=== PATIENT | female | born 1940 | race Caucasian/White ===

== ENCOUNTER 2017-11-25 20:58 | Inpatient (IN) | payer MEDICARE ==
[~2017-11-25 20:58] MED LIST: ACET325 PO
[2017-11-25 21:23] VITALS: BP 102/55; PULSE 77; RESP 12; TEMP 99
[2017-11-25 21:51] VITALS: BP 120/58; PULSE 74; RESP 18; O2SAT 97
--- NOTE | 2017-11-25 21:59 | PD ---
HPI Chief Complaint: Abdominal Pain Time Seen by Provider: 21:50 Travel History International Travel<30 days: No Contact w/Intl Traveler<30days: No Traveled to known affect area: No History of Present Illness HPI The patient is a 77 year old female who presents to the [facility] emergency department with a history of abdominal that began on Saturday. It is constant and worsening. It with worse with standing or moving. It is an aching sensation that is 8-9/10 in severity currently. She has had a diminished appetite. She last moved her bowels on Saturday. She denies having any blood in her stool. The patient denies any history of recent constipation. On review of systems otherwise, the patient denies having any recent fevers, cough, congestion, neck pain, chest pain, shortness of breath, nausea, vomiting, diarrhea, dysuria, urinary frequency, urinary urgency, or neurologic symptoms. FOR[facility]LY [facility] Past Medical History Narrative Medical The patient's past medical history is significant for bladder cancer s/p surgical scraping, bladder stones, hyperlipidemia. PCP in [place]. Cancer: Yes (bladder 01/2017) Diabetes: No Glaucoma: No Hepatitis: No Hiatal Hernia: No Hypertension: No Thyroid Disease: No Influenza Vaccination: No Past Surgical History Narrative Surgical bladder CA resection s/p chemotherapy with a negative cystoscopy for recurrence on October 01, 2017, history of hysterectomy. Eye Surgery: Yes (CATARACT SX BOTH EYES) Gynecologic Surgery: Yes (HYSTERECTOMY ) Hysterectomy: Yes Other Surgery: Yes Social History Alcohol Use: Yes (OCC WINE) Tobacco Use: No Substance Use: No Allergies-Medications (Allergen,Severity, Reaction): Coded Allergies: Sulfa (Sulfonamide Antibiotics) (Unverified Allergy, Severe, RASH, 05/14/17 ) codeine (Unverified Allergy, Intermediate, NAUSEA, 05/14/17) morphine (Unverified Allergy, Intermediate, VOMITITNG, 05/14/17) Reported Meds & Prescriptions Reported Meds & Active Scripts Active Reported Tylenol (Acetaminophen) 325 Mg Tab 650 Mg PO Q6-8HPRN Narrative Medication pravastatin, sleep aid, low dose aspirin daily. Review of Systems Except as stated in HPI: all other systems reviewed are Neg General / Constitutional: No: Fever Eyes: No: Visual changes HENT: No: Headaches Cardiovascular: No: Chest Pain or Discomfort Respiratory: No: Shortness of Breath Gastrointestinal: Positive: Abdominal Pain, Loss of Appetite, No: Nausea, Vomiting, Diarrhea Genitourinary: No: Dysuria Musculoskeletal: No: Pain Skin: No Rash Neurologic: No: Weakness Psychiatric: No: Depression Endocrine: No: Polydipsia Hematologic/Lymphatic: No: Easy Bruising Physical Exam Narrative General: The patient is a well-developed well nourished female in no acute distress. Head and Neck exam: Head is normocephalic atraumatic. Eyes: EOMI, pupils are equal round and reactive to light. Nose: Midline septum with pink mucous membranes Mouth: Dentition unremarkable. Moist mucus membranes. Posterior oropharynx is not erythematous. No tonsillar hypertrophy. Uvula midline. Airway patent. Neck: No palpable lymphadenopathy. No nuchal rigidity. No thyromegaly. Cardiovascular: Regular rate and rhythm without murmurs, gallops, or rubs. Lungs: Clear to auscultation bilaterally. No wheezes, rhonchi, or rales. Abdomen: Soft, with tenderness on palpation of bilateral lower quadrants of the abdomen and the right upper quadrant of the abdomen, negative Thompson sign. The patient has tenderness on palpation over McBurney's point. The patient also has suprapubic tenderness on palpation. No guarding, rebound, or rigidity. Normal bowel sounds are audible. Extremities: No clubbing, cyanosis, or edema. 2+ pulses in all 4 extremities. No calf tenderness on palpation. Back: No spinous process tenderness to palpation. No costovertebral angle tenderness to palpation. Neurologic Exam: Grossly nonfocal. Skin Exam: No rash noted. Intact skin that is warm and dry. Data Data Last Documented VS Vital Signs Date Time Temp Pulse Resp B/P (MAP) Pulse Ox O2 Delivery O2 Flow Rate FiO2 11/25/17 22:00 17 99 Room Air 11/25/17 21:51 74 11/25/17 21:23 99.0 Orders Orders Complete Blood Count With Diff (11/25/17 21:25) Prothrombin Time / Inr (Pt) (11/25/17 21:25) Act Partial Throm Time (Ptt) (11/25/17 21:25) Urinalysis - C+S If Indicated (11/25/17 21:25) Electrocardiogram (11/25/17 21:25) C-Reactive Protein (Crp) (11/25/17 21:54) Hepatic Functional Panel (11/25/17 21:54) Lipase (11/25/17 21:54) Iv Access Insert/Monitor (11/25/17 21:54) Ecg Monitoring (11/25/17 21:54) Oximetry (11/25/17 21:54) Ketorolac Inj (Toradol Inj) (11/25/17 22:30) Ondansetron Inj (Zofran Inj) (11/25/17 22:30) Sodium Chlorid 0.9% 500 Ml Inj (Ns 500 M (11/25/17 22:30) Ct Abd/Pel W Iv Contrast(Rout) (11/25/17 22:27) Basic Metabolic Panel (Bmp) (11/25/17 22:00) Iohexol 350 Inj (Omnipaque 350 Inj) (11/26/17 00:50) Sodium Chlor 0.9% 1000 Ml Inj (Ns 1000 M (11/26/17 01:45) Piperacil-Tazo 3.375 Gm Premix (Zosyn 3. (11/26/17 02:00) Admit Order (Ed Use Only) (11/26/17 02:11) Labs Laboratory Tests Test 11/25/17 22:00 White Blood Count 7.3 TH/MM3 Red Blood Count 4.62 MIL/MM3 Hemoglobin 14.0 GM/DL Hematocrit 41.0 % Mean Corpuscular Volume 88.8 FL Mean Corpuscular Hemoglobin 30.4 PG Mean Corpuscular Hemoglobin Concent 34.2 % Red Cell Distribution Width 14.6 % Platelet Count 185 TH/MM3 Mean Platelet Volume 8.8 FL Neutrophils (%) (Auto) 86.0 % Lymphocytes (%) (Auto) 9.5 % Monocytes (%) (Auto) 4.1 % Eosinophils (%) (Auto) 0.0 % Basophils (%) (Auto) 0.4 % Neutrophils # (Auto) 6.3 TH/MM3 Lymphocytes # (Auto) 0.7 TH/MM3 Monocytes # (Auto) 0.3 TH/MM3 Eosinophils # (Auto) 0.0 TH/MM3 Basophils # (Auto) 0.0 TH/MM3 CBC Comment DIFF FINAL Differential Comment Prothrombin Time 10.9 SEC Prothromb Time International Ratio 1.1 RATIO Activated Partial Thromboplast Time 26.6 SEC Blood Urea Nitrogen 20 MG/DL Creatinine 1.25 MG/DL Random Glucose 151 MG/DL Total Protein 7.1 GM/DL Albumin 3.4 GM/DL Calcium Level 8.8 MG/DL Alkaline Phosphatase 110 U/L Aspartate Amino Transf (AST/SGOT) 25 U/L Alanine Aminotransferase (ALT/SGPT) 20 U/L Total Bilirubin 1.2 MG/DL Direct Bilirubin 0.3 MG/DL Sodium Level 135 MEQ/L Potassium Level 4.0 MEQ/L Chloride Level 102 MEQ/L Carbon Dioxide Level 24.3 MEQ/L Anion Gap 9 MEQ/L Estimat Glomerular Filtration Rate 41 ML/MIN Indirect Bilirubin 0.9 MG/DL C-Reactive Protein 26.00 MG/DL Lipase 32 U/L MDM Medical Decision Making Medical Screen Exam Complete: Yes Emergency Medical Condition: Yes Medical Record Reviewed: Yes Interpretation(s) Last Impressions Abdomen/Pelvis CT 11/25/172226 Signed Impressions: Service Date/Time: Sunday, November 26, 2017 00:53 - CONCLUSION: 1. Findings consistent with acute appendicitis and 9 mm appendicolith. Although there is moderate inflammation in the pericecal and periappendiceal region with small amount of free fluid in the pelvis, there is no definitive CT evidence for perforation or abscess at this time. Peng Capps MD Differential Diagnosis Acute pancreatitis, versus biliary colic, versus acute cholecystitis, versus appendicitis, versus colitis, versus diverticulitis Narrative Course During the course of the patient's emergency department visit, the patient's history, examination, and differential diagnosis were reviewed with the patient. The patient was placed on a electronic device monitor with oximetry and frequent blood pressure monitoring. The patient had IV access obtained and blood work sent for analysis. The patient had an EKG done on arrival that shows a sinus rhythm heart rate is 73, no acute ST segment elevation, QRS duration 92 ms, QTC 401 ms. The patient was initially provided Toradol 15 mg IV for pain, Zofran 4 mg IV for nausea, normal saline at 500 mL bolus 1. The patient's laboratory studies were reviewed and remarkable for a white count of 7.3, hemoglobin 14, platelets 185 with 86 neutrophils. CMP is remarkable for a sodium of 135, BUN 20, creatinine 1.25, glucose 151, total bilirubin 1.2, C-reactive protein is 26, lipase 32. PT 10.9, PTT 26.6 Radiology studies were reviewed and remarkable for a CT scan of the abdomen and pelvis shows findings consistent with acute appendicitis with a [address] Velasquze, the general surgeon on-call, was called at 2:08AM. He did agree to admit the patient for continued evaluation, operative treatment. He was agreeable with the plan for the patient to receive Zosyn 3.375 g IV. The patient's results were discussed with the patient, including the plan of care. I explained that further testing and/ or monitoring is indicated based on the patient's history, examination, and/ or laboratory findings. Therefore, I recommended admission for additional evaluation. The patient expressed understanding and was agreeable with this plan. The patient was admitted to the hospital in stable condition and sent to a bed under the care of the general surgeon. Physician Communication Physician Communication The patient's case including history, pertinent physical examination findings, and laboratory studies were discussed with Dr. Dick. It was agreed that the patient would be admitted to the surgical service. Diagnosis Primary Impression: Appendicitis Qualified Codes: K35.2 - Acute appendicitis with generalized peritonitis Admitting Information Admitting Physician Requests: Observation Desirae Aly MD Nov 25, 2017 21:59
[2017-11-25 22:00] VITALS: RESP 17; O2SAT 99
[2017-11-25] MEDS ORDERED: ONDANSETRON HCL 4 MG/2 ML VIAL IV PUSH ONE (22:30)
[2017-11-25] MEDS ORDERED: SODIUM CHLORID 0.9% 500 ML INJ 500 ML IV ONE (22:30)
[2017-11-25] MEDS ORDERED: KETOROLAC TROMETHAMINE 30 MG/ML (IVP) VIAL IV PUSH ONE (22:30)
[2017-11-25 22:48] LABS: ALBUMIN 3.4 GM/DL (3.4-5.0); DIRECT BILIRUBIN ADULT 0.3 MG/DL (0.0-0.2)
[2017-11-25 22:54] LABS: INDIRECT BILIRUBIN 0.9 MG/DL (0.0-0.8); TOTAL BILIRUBIN ADULT 1.2 MG/DL (0.2-1.0); TOTAL PROTEIN 7.1 GM/DL (6.4-8.2)
[2017-11-26 00:01] LABS: AUTOMATED NEUTROPHIL # 6.3 TH/MM3 (1.8-7.7); BASOPHIL % 0.4 % (0.0-2.0); LYMPH % 9.5 % (9.0-44.0); LYMPHOCYTE # 0.7 TH/MM3 (1.0-4.8); MEAN CELL VOLUME 88.8 FL (80.0-100.0); MEAN CORPUSCULAR HEMOGLOBIN 30.4 PG (27.0-34.0); MEAN CORPUSCULAR HGB CONC 34.2 % (32.0-36.0); MEAN PLATELET VOLUME 8.8 FL (7.0-11.0); MONO % 4.1 % (0.0-8.0); MONOCYTE # 0.3 TH/MM3 (0-0.9); PLATELET COUNT 185 TH/MM3 (150-450); RED BLOOD COUNT 4.62 MIL/MM3 (4.00-5.30); RED CELL DISTRIBUTION WIDTH 14.6 % (11.6-17.2); WHITE BLOOD COUNT 7.3 TH/MM3 (4.0-11.0)
[2017-11-26 00:12] LABS: INTERNATIONAL NORMALIZED RATIO 1.1 RATIO; PROTHROMBIN TIME - PATIENT 10.9 SEC (9.8-11.6)
[2017-11-26 00:14] LABS: CALCIUM 8.8 MG/DL (8.5-10.1); CREATININE 1.25 MG/DL (0.50-1.00)
[2017-11-26 00:27] LABS: BICARBONATE 24.3 MEQ/L (21.0-32.0)
[2017-11-26] MEDS ORDERED: IOHEXOL 350 MG/ML 10 ML VIAL (for RAD DIAG) IVCONTRAST ONE (00:50)
--- NOTE | 2017-11-26 01:38 | RADRPT ---
EXAM DATE/TIME: 11/26/2017 00:53 [place] COMPARISON: No previous studies available for comparison. INDICATIONS : Low abdomen pain. IV CONTRAST: 75 cc Omnipaque 350 (iohexol) IV ORAL CONTRAST: No oral contrast ingested. RADIATION DOSE: 9.55 CTDIvol (mGy) MEDICAL HISTORY : Carcinoma, bladder. SURGICAL HISTORY : Hysterectomy. ENCOUNTER: Initial ACUITY: 1 day PAIN SCALE: 5/10 LOCATION: Bilateral lower quadrant TECHNIQUE: Volumetric scanning of the abdomen and pelvis was performed. Using automated exposure control and ad justment of the mA and/or kV according to patient size, radiation dose was kept as low as reasonably achievable to obtain optimal diagnostic quality images. DICOM format image data is available electro nically for review and comparison. FINDINGS: LOWER LUNGS: Minimal bibasilar groundglass opacities. LIVER: Homogeneous density without lesion. There is no dilation of the biliary tree. No calcified gallston es. SPLEEN: Normal size without lesion. PANCREAS: Within normal limits. KIDNEYS: 7 mm just to a calculus in the mid left kidney. Multiple small subcentimeter hypodense bilateral cyst ic lesions which are too small to fully characterize. The no hydronephrosis. ADRENAL GLANDS: Within normal limits. VASCULAR: There is no aortic aneurysm. BOWEL/MESENTERY: There is a 9 mm appendicolith in the appendix origin. Appendix is dilated and appears inflamed. There is moderate periappendiceal and pericecal inflammatory stranding with small amount of fluid in the p ben. No definite free air or drainable fluid collection at this time. Several loops of nondistended fluid-filled small bowel in the lower abdomen quite reflect reactive mild ileus. ABDOMINAL WALL: Within normal limits. RETROPERITONEUM: There is no lymphadenopathy. BLADDER: Bladder is unremarkable by CT. REPRODUCTIVE: Uterus is surgically absent. INGUINAL: There is no lymphadenopathy or hernia. MUSCULOSKELETAL: Within normal limits for patient age. CONCLUSION: 1. Findings consistent with acute appendicitis and 9 mm appendicolith. Although there is moderate inf lammation in the pericecal and periappendiceal region with small amount of free fluid in the pelvis, there is no definitive CT evidence for perforation or abscess at this time. Peng Capps MD on November 26, 2017 at 1:30 Board Certified Radiologist. This report was verified electronically.
[2017-11-26] MEDS ORDERED: SODIUM CHLOR 0.9% 1000 ML INJ 1,000 ML IV ONE (01:45)
[2017-11-26] MEDS ORDERED: PIPERACIL-TAZO 3.375 GM PREMIX 50 ML IV ONE (02:00)
[2017-11-26] MEDS ORDERED: BUPIVACAINE/EPINEPHRINE 0.25% 50 ML VIAL ONE (06:08)
--- NOTE | 2017-11-26 06:46 | HHI.PR ---
Immediate Post Op Note Procedure Date: Nov 26, 2017 Pre Op Diagnosis: acute appendicitis Post Op Diagnosis: necrotic perforated appendicitis, with multiple interloop abscess Surgeon: Esvin Velasquez MD Poured Pipe Maker(s): see or sheet Procedure: lap appy Findings: inflamed appendix, necrotic perforated, abscess Complications: none Specimen(s) removed: appendix Estimated blood loss: 5cc Anesthesia: General Drains: GINNA Patient to: PACU Patient Condition: Good Esvin Velasquez MD Nov 26, 2017 06:46
[2017-11-26] MEDS ORDERED: MIDAZOLAM HCL 2 MG/2 ML VIAL ONE (07:04)
[2017-11-26] MEDS ORDERED: SUGAMMADEX SODIUM 200 MG/2 ML VIAL IV PUSH ONE (07:21)
[2017-11-26] MEDS ORDERED: DO NOT ADM ANY ANTICOAGULANT DRUGS PRN (08:00)
[2017-11-26] MEDS: PIPERACIL-TAZO 3.375 GM PREMIX 50 ML IV SCH ×2 (08:45→18:14)
--- NOTE | 2017-11-26 09:37 | MH ---
cc: Esvin Velasquez MD DATE OF ADMISSION: 11/26/2017 CHIEF COMPLAINT: Abdominal pain, acute appendicitis. HISTORY OF PRESENT ILLNESS: Patient is a 77-year-old female who presents with acute onset of abdominal pain. She states the pain started Saturday and continued to get worse. She notes the pain is somewhat diffuse, 7/10. Currently, it is 8/10 or 9/10. She said it is sharp and radiates kind of bilateral lower quadrants, more so in the right lower quadrant. She has decreased associated p.o. intake. She denies any overt vomiting. Does have complaint of some nausea. She came in the emergency department for evaluation including CT scanning concerning with appendicolith and acute appendicitis. Surgery consulted. On my exam, patient is complaining of some bilateral lower quadrant pain. She said it is somewhat mild. Her white count is normal as well. PAST MEDICAL HISTORY: Bladder cancer, hyperlipidemia, bladder stones. PAST SURGICAL HISTORY: Bladder scraping, hysterectomy. SOCIAL HISTORY: Occasional ETOH. Denies smoking or IVDA. ALLERGIES: SULFA, CODEINE, MORPHINE. MEDICATIONS: See EMR. FAMILY HISTORY: Denies coronary artery disease or hypertension. REVIEW OF SYSTEMS: GENERAL: Denies fever, chills. HEENT: Denies eye pain or ear pain. NECK: Denies swelling or pain. LUNGS: Denies cough or wheeze. HEART: Denies palpitations or chest pain. ABDOMEN: Complains of nausea. Denies vomiting. Complains of abdominal pain. GENITOURINARY: Denies dysuria or hematuria. ENDOCRINE: Denies polyuria or polydipsia. NEUROLOGIC: Denies numbness or PSYCHIATRIC: Denies depression or change in mood. HEMATOLOGIC: Denies bruising. PHYSICAL EXAMINATION: GENERAL: Patient in no acute distress. VITAL SIGNS: Temperature is 99, pulse 74, respirations 18, blood pressure 120/58, saturation 97%. HEENT: Pupils equal, round, reactive. NECK: Supple, trachea midline. LUNGS: Clear to auscultation bilaterally. HEART: S1, S2, regular. ABDOMEN: Soft, positive tenderness to palpation bilateral lower quadrants. Right lower quadrant rebound. Nondistended. EXTREMITIES: Warm, well perfused. NEUROLOGIC: AO x 4. 5/5 motor all extremities. INTEGUMENTARY: No obvious masses or lesions. LABORATORY AND DIAGNOSTIC DATA: WBC 7.3, hemoglobin 14, hematocrit 41, platelets 185. Sodium 135, potassium 4, chloride 102. BUN is 20, creatinine 1.2. Bilirubin 1.2. AST 25, ALT 20, lipase 32. INR is 1.1. CT reviewed by myself showing appendicolith with acute appendicitis. Normal amount of fluid. ASSESSMENT: After full clinical, radiological workup, assessment is a 77-year-old female with acute appendicitis. PLAN: Patient will be admitted, IV antibiotics, pain control, n.p.o. Will plan for surgical intervention including laparoscopic appendectomy. I discussed with patient possible open procedure, possible drain placement. Patient states understanding and agrees. MD ARIELA Moreira/DRISS , 08:56 AM , 09:34 AM
[2017-11-26] MEDS ORDERED: ePHEDrine/NS 25 MG/5 ML SYRINGE IV ONE (10:00)
[2017-11-26] MEDS ORDERED: LACTATED RINGER'S 1000 ML INJ 1,000 ML IV ONE (10:00)
[2017-11-26] MEDS ORDERED: ONDANSETRON HCL 4 MG/2 ML VIAL IV ONE (10:00)
[2017-11-26] MEDS ORDERED: ROCURONIUM INJ 50 MG/5 ML SYRINGE IV PUSH ONE (10:00)
[2017-11-26] MEDS ORDERED: LIDOCAINE HCL 1% PF 5 ML SYRINGE OTHER ONE (10:00)
[2017-11-26] MEDS ORDERED: SUCCINYLCHOLINE CHLORIDE 100 MG/5 ML SYRINGE IV PUSH ONE (10:00)
[2017-11-26] MEDS ORDERED: DEXAMETHASONE SOD PHOS 4 MG/ML VIAL IV ONE (10:00)
[2017-11-26] MEDS ORDERED: PHENYLEPH/NS 1000 MCG/10 ML SYR IV ONE (10:00)
[2017-11-26] MEDS ORDERED: PROPOFOL 200 MG/20 ML AMP IV ONE (10:00)
--- NOTE | 2017-11-26 11:51 | MP ---
cc: Esvin Velasquez. Esvin Syed MD DATE OF OPERATION: 11/26/2017 PREOPERATIVE DIAGNOSIS Acute appendicitis. POSTOPERATIVE DIAGNOSIS Acute appendicitis, necrotic appendix, intra loop, intraabdominal abscess. PROCEDURE PREFORMED Laparoscopic appendectomy. SURGEON Esvin Velasquez MD. AFFILIATE MARKETING MANAGER See OR Sheet. ANESTHESIA GETA with fluids. See anesthesia sheet. ESTIMATED BLOOD LOSS 5 cc 's. DRAINS Two 10 [place] round Frank drains. Umbilical drain placed in the left colic gutter, suprapubic drain placed in right lower quadrant at appendiceal stump. FINDINGS Necrotic perforated appendicitis with interloop abscess scattered throughout the abdomen. SPECIMENS 1. Appendicitis, appendix. 2. Cultures of umbilical abscess. INDICATION The patient is a 69 -Year-Old Female who presents with acute onset of bilateral lower quadrant pain. The patient had a CT findings of appendicolith with acute appendicitis, therefore plans for operative intervention. DETAILS OF THE PROCEDURE The patient was taken to the operative suite, placed in the supine position, she was prepped and draped in the usual sterile fashion after induction of general endotracheal anesthesia. A brief time out done to obtain correct, patient, procedure and surgical site where all agreed with this. Attention was directed to the umbilicus, local anesthetic was injected, a stab, chanell incision made. Towel clip used to elevate the abdomen. Veress needle was placed, intraabdominal placement confirmed with a saline drop test. Abdomen insufflated to 15 mm 's pneumoperitoneum. The Veress needle was changed for a 5 mm Visiport trochar. On closer inspection no evidence of injury. There was noted to be significant interloop adhesion with abscess noted in the abdominal cavity. Two other ports were placed, one suprapubic 5 mm trochar followed by left lower quadrant 12 mm trochar. The patient was placed in Trendelenburg including the left and right lower quadrants explored. There were adhesions to the appendix and fibrinous exudate along with purulent appendicitis and perforation. The appendix was grossly necrotic. The appendiceal base was dissected out and this is easily done using Asiya and Monopolar. Endo-ODILIA 35 stapler was used to transect the base of the mesoappendix and the appendix base as well. The appendix was placed in the bag and removed from the abdomen. The suction irrigation used was greater then one liter until fluid was somewhat clear. Some fibrous purulent exudate was also removed from the bowel as well. Once this has been thoroughly irrigated, decision made for drain placement. Suprapubic drain was placed in the right lower quadrant at the appendiceal stump and a second drain was placed at the umbilicus in the left colic gutter. Drains were secured to nylons, abdomen desufflated. The left lower quadrant 12 mm trochar was closed with 0 Vicryl, 4-0 Monocryl used for subcuticular suture. Dressings and sterile dressings were placed. The patient tolerated the procedure well and was admitted to the hospital, all laps, instruments counts were corrected. At the end of the procedure the patient was extubated and taken to postoperative suite without complications. WOUND CLASSIFICATION The wound classification is contaminated, dirty. MD ARIELA Moreira/ENRIQUE , 09:01 AM , 11:49 AM
[2017-11-26] MEDS ORDERED: SODIUM CHLORID 0.9% 500 ML INJ 500 ML IV ONE (12:45)
[2017-11-26] MEDS: oxyCODONE/ACETAMINOPHEN 5 MG/325 MG TAB PO PRN (18:14)
[2017-11-26 20:23] VITALS: BP 96/52; PULSE 68; RESP 17; TEMP 96.6; O2SAT 95
--- NOTE | 2017-11-26 22:20 | EKG ---
Date Performed: 11/25/2017 Time Performed: 21:50:41 PTAGE: 77 years EKG: Sinus rhythm POSSIBLE LEFT ATRIAL ENLARGEMENT MINIMAL ST DEPRESSION BORDERLINE ECG PREVIOUS TRACING : 10/11/2008 15.20 DOCTOR: Lesvia Gamino Interpretating Date/Time 11/26/2017 22:20:16
[2017-11-26 22:35] VITALS: O2SAT 97
[2017-11-27] VITALS: BP 94/54; PULSE 64; RESP 18; TEMP 96.3; O2SAT 97
[2017-11-27] MEDS: PIPERACIL-TAZO 3.375 GM PREMIX 50 ML IV SCH ×3 (01:34→18:50)
[2017-11-27 04:41] VITALS: BP 101/53; PULSE 56; RESP 18; TEMP 96.6; O2SAT 95
[2017-11-27 08:00] VITALS: BP 109/56; PULSE 58; RESP 16; TEMP 95.6; O2SAT 92
[2017-11-27 09:12] LABS: AUTOMATED NEUTROPHIL # 7.8 TH/MM3 (1.8-7.7); BASOPHIL % 0.1 % (0.0-2.0); HEMATOCRIT 37.8 % (35.0-46.0); LYMPHOCYTE # 0.6 TH/MM3 (1.0-4.8); MEAN CELL VOLUME 88.8 FL (80.0-100.0); MEAN CORPUSCULAR HEMOGLOBIN 30.5 PG (27.0-34.0); MEAN CORPUSCULAR HGB CONC 34.4 % (32.0-36.0); MEAN PLATELET VOLUME 9.1 FL (7.0-11.0); MONO % 4.7 % (0.0-8.0); MONOCYTE # 0.4 TH/MM3 (0-0.9); NEUT % 88.2 % (16.0-70.0); PLATELET COUNT 160 TH/MM3 (150-450); RED BLOOD COUNT 4.26 MIL/MM3 (4.00-5.30); RED CELL DISTRIBUTION WIDTH 14.7 % (11.6-17.2); WHITE BLOOD COUNT 8.8 TH/MM3 (4.0-11.0)
[2017-11-27 09:31] LABS: ALBUMIN 2.7 GM/DL (3.4-5.0); ALT (GPT) 14 U/L (10-53); AST (GOT) 10 U/L (15-37); BICARBONATE 23.9 MEQ/L (21.0-32.0); BLOOD UREA NITROGEN 24 MG/DL (7-18); CALCIUM 9.5 MG/DL (8.5-10.1); CHLORIDE 108 MEQ/L (98-107); CREATININE 1.08 MG/DL (0.50-1.00); GLOMERULAR FILTRATION RATE 49 ML/MIN (>89); GLUCOSE,RANDOM 110 MG/DL (74-106); SODIUM (NA) 140 MEQ/L (136-145)
[2017-11-27 09:33] LABS: ALKALINE PHOSPHATASE 108 U/L (45-117); TOTAL BILIRUBIN ADULT 0.7 MG/DL (0.2-1.0); TOTAL PROTEIN 7.1 GM/DL (6.4-8.2)
[2017-11-27] MEDS: SODIUM CHLOR 0.9% 1000 ML INJ 1,000 ML IV SCH ×2 (09:45→21:37)
[2017-11-27] MEDS: oxyCODONE/ACETAMINOPHEN 5 MG/325 MG TAB PO PRN (09:45)
--- NOTE | 2017-11-27 10:21 | HHI.PR ---
Subjective Subjective Notes Ambulating in room C/o RLQ pain otherwise feeling okay Objective Vitals/I&O Vital Signs Date Time Temp Pulse Resp B/P (MAP) Pulse Ox O2 Delivery O2 Flow Rate FiO2 11/27/17 08:00 95.6 58 16 109/56 (73) 92 11/26/17 22:35 Nasal Cannula 2.00 Labs Laboratory Tests Test 11/27/17 08:17 White Blood Count 8.8 Red Blood Count 4.26 Hemoglobin 13.0 Hematocrit 37.8 Mean Corpuscular Volume 88.8 Mean Corpuscular Hemoglobin 30.5 Mean Corpuscular Hemoglobin Concent 34.4 Red Cell Distribution Width 14.7 Platelet Count 160 Mean Platelet Volume 9.1 Neutrophils (%) (Auto) 88.2 Lymphocytes (%) (Auto) 7.0 Monocytes (%) (Auto) 4.7 Eosinophils (%) (Auto) 0.0 Basophils (%) (Auto) 0.1 Neutrophils # (Auto) 7.8 Lymphocytes # (Auto) 0.6 Monocytes # (Auto) 0.4 Eosinophils # (Auto) 0.0 Basophils # (Auto) 0.0 CBC Comment DIFF FINAL Differential Comment Blood Urea Nitrogen 24 Creatinine 1.08 Random Glucose 110 Total Protein 7.1 Albumin 2.7 Calcium Level 9.5 Alkaline Phosphatase 108 Aspartate Amino Transf (AST/SGOT) 10 Alanine Aminotransferase (ALT/SGPT) 14 Total Bilirubin 0.7 Sodium Level 140 Potassium Level 3.9 Chloride Level 108 Carbon Dioxide Level 23.9 Anion Gap 8 Estimat Glomerular Filtration Rate 49 Date/Time Source Procedure Growth Status 11/26/17 07:10 Abscess Abdomen Fungal Smear - Final NO FUNGAL ELEMENTS SEEN. Resulted 11/26/17 07:10 Abscess Abdomen Fungal Culture Pending Resulted Cardiovascular: Regular Lungs: Clear Abdomen: Non-distended, Other (lap incision sites c/d/i; GINNA x2 both with cloudy drainage; RLQ tenderness with palpation ) Extremities: No edema A/P Assessment and Plan 77 year old female POD1 lap appy; perforated -Sips of clear liquids -IVF -IS -Lovenox -Continue Zosyn -OOB as tolerated -High risk for ileus due to perforated appendicitis Karla Arevalo. JASE/First Jaclyn LAGUNA Nov 27, 2017 10:21
[2017-11-27] MEDS: ENOXAPARIN SODIUM 40 MG/0.4 ML SYRINGE SQ SCH (10:45)
[2017-11-27 12:00] VITALS: BP 101/51; PULSE 54; RESP 15; TEMP 96.7; O2SAT 93
[2017-11-27 16:00] VITALS: BP 130/75; PULSE 65; RESP 17; TEMP 96.7; O2SAT 95
[2017-11-27 20:00] VITALS: BP 123/62; PULSE 53; RESP 17; TEMP 96; O2SAT 95
[2017-11-27] MEDS ORDERED: IBUPROFEN 800 MG TAB PO PRN (21:30)
[2017-11-27] MEDS: KETOROLAC TROMETHAMINE 30 MG/ML (IVP) VIAL IV PUSH SCH (22:41)
[2017-11-28] VITALS: BP 120/66; PULSE 60; RESP 17; TEMP 97.5; O2SAT 96
[2017-11-28] MEDS: PIPERACIL-TAZO 3.375 GM PREMIX 50 ML IV SCH ×3 (01:20→18:02)
[2017-11-28] MEDS: KETOROLAC TROMETHAMINE 30 MG/ML (IVP) VIAL IV PUSH SCH ×4 (05:00→23:22)
[2017-11-28 07:54] VITALS: O2SAT 93
[2017-11-28 08:00] VITALS: BP 152/67; PULSE 61; RESP 18; TEMP 95.3; O2SAT 95
--- NOTE | 2017-11-28 09:29 | HHI.FF ---
Face to Face Verification Diagnosis: (1) Appendicitis Home Health Nursing Order: Wound care and dressing changes Nursing assessment with vital signs Instructions: Routine GINNA drain care for home I have seen patient Lady Jacobs on 11/28/17. My clinical findings support the need for the requested home health care services because: Limited ability to care for self High risk of falls I certify that my clinical findings support that this patient is homebound because: Post-op weakness Karla Arevalo/Health Plan Manager ARNP Nov 28, 2017 09:29
[2017-11-28] MEDS: ENOXAPARIN SODIUM 40 MG/0.4 ML SYRINGE SQ SCH (11:11)
[2017-11-28 12:00] VITALS: BP 128/58; PULSE 63; RESP 18; TEMP 95.5; O2SAT 93
[2017-11-28] MEDS: SODIUM CHLOR 0.9% 1000 ML INJ 1,000 ML IV SCH (13:11)
--- NOTE | 2017-11-28 14:42 | HHI.PR ---
Subjective Subjective Notes Up to chair Feeling good Asking for oatmeal Objective Vitals/I&O Vital Signs Date Time Temp Pulse Resp B/P (MAP) Pulse Ox O2 Delivery O2 Flow Rate FiO2 11/28/17 12:00 95.5 63 18 128/58 (81) 93 11/26/17 22:35 Nasal Cannula 2.00 Labs Date/Time Source Procedure Growth Status 11/26/17 07:10 Abscess Abdomen Fungal Smear - Final NO FUNGAL ELEMENTS SEEN. Resulted 11/26/17 07:10 Abscess Abdomen Fungal Culture Pending Resulted Cardiovascular: Regular Lungs: Clear Abdomen: Other (lap sites c/d/i; GINNA with mildly cloudy drainage; abdomen soft ) Extremities: No edema A/P Assessment and Plan 77 year old female POD2 lap appy; perforated -Advance to full liquids + oatmeal -IVF -IS -Lovenox -Continue Zosyn -OOB as tolerated -CM consult for [facility] Karla Arevalo/First Jaclyn LAGUNA Nov 28, 2017 14:42
[2017-11-28 16:00] VITALS: BP 145/67; PULSE 65; RESP 19; TEMP 96.3; O2SAT 95
[2017-11-28 20:00] VITALS: BP 118/59; PULSE 79; RESP 18; TEMP 96.2; O2SAT 97
[2017-11-29] VITALS: BP 138/61; PULSE 52; RESP 18; TEMP 97.5; O2SAT 96
[2017-11-29] MEDS: PIPERACIL-TAZO 3.375 GM PREMIX 50 ML IV SCH ×2 (01:00→08:52)
[2017-11-29] MEDS: KETOROLAC TROMETHAMINE 30 MG/ML (IVP) VIAL IV PUSH SCH ×3 (05:18→12:33)
[2017-11-29] MEDS: SODIUM CHLOR 0.9% 1000 ML INJ 1,000 ML IV SCH (05:53)
[2017-11-29 08:00] VITALS: BP 145/65; PULSE 60; RESP 17; TEMP 97.2; O2SAT 96
[2017-11-29] MEDS ORDERED: DOCUSATE SODIUM 50 MG/SENNA 8.6 MG TAB PO SCH (09:30)
[2017-11-29 12:00] VITALS: BP 136/66; PULSE 58; RESP 17; TEMP 97.7; O2SAT 96
[2017-11-29] MEDS: ENOXAPARIN SODIUM 40 MG/0.4 ML SYRINGE SQ SCH (12:32)
[2017-11-29] MEDS: METOCLOPRAMIDE HCL 10 MG/2 ML VIAL IV PUSH SCH ×2 (12:33→14:00)
[2017-11-29 16:00] VITALS: BP 132/63; PULSE 71; RESP 17; TEMP 96; O2SAT 96
[2017-11-29] MEDS ORDERED: AMOX875T2 PO (16:00)
[2017-11-29] MEDS ORDERED: IBUP1TAB7 PO (16:00)
--- NOTE | 2017-11-29 16:28 | HHI.DS ---
Discharge Summary Admission Date Nov 26, 2017 at 07:49 Admitting Diagnosis Acute Appendicitis CBC/BMP: 11/27/17 0817 11/27/17 0817 Significant Findings Laboratory Tests Test 11/27/17 08:17 Neutrophils (%) (Auto) 88.2 % (16.0-70.0) Lymphocytes (%) (Auto) 7.0 % (9.0-44.0) Neutrophils # (Auto) 7.8 TH/MM3 (1.8-7.7) Lymphocytes # (Auto) 0.6 TH/MM3 (1.0-4.8) Blood Urea Nitrogen 24 MG/DL (7-18) Creatinine 1.08 MG/DL (0.50-1.00) Random Glucose 110 MG/DL (74-106) Albumin 2.7 GM/DL (3.4-5.0) Aspartate Amino Transf (AST/SGOT) 10 U/L (15-37) Chloride Level 108 MEQ/L (98-107) Estimat Glomerular Filtration Rate 49 ML/MIN (>89) Pt Condition on Discharge: Good Discharge Disposition: Disch w/ Home Health Serv Discharge Instructions DIET: Follow Instructions for: As Tolerated, No Restrictions Activities you can perform: See Additionl Instruction Other Activity Instructions: Okay to shower; no bathtubs; pat incision dry Avoid heavy pushing pulling or lifting Karla Arevalo/First Jaclyn LAGUNA Nov 29, 2017 16:28
[2017-11-29] MEDS ORDERED: AMOXICILLIN/CLAVULANATE K 875 MG TAB PO SCH (21:00)
== END 2017-11-29 18:43 | disposition home health service (06) | DRG 338 ==
LOC: NEPE 20:58 → NEDA 11-26 02:12 → NEDH 11-26 06:15 → OBSVTOIN 11-26 07:49 → N07B 11-26 12:10
PROVIDERS: ADMIT Surgery; ATTEND Surgery
PROC: 0DTJ4ZZ Resection of Appendix, Percutaneous Endoscopic Approach (ICD-10-PCS; principal; 2017-11-26 06:35)
DX: K35.2 Acute appendicitis with generalized peritonitis (principal); K65.1 Peritoneal abscess; E78.5 Hyperlipidemia, unspecified
CPT/HCPCS: 74177; 80048; 80053; 80076; 83690; 85025; 85610; 85730; 86140; 87015; 87070; 87102; 87116; 87185; 87205; 87206; 88304; 93005; 94150; 96361; 96374; 96375; J0330; J1100; J1650; J1885; J2250; J2370; J2405; J2543; J2765; J3010; J7030; J7040; J7120; Q9967

== ENCOUNTER → 2017-12-20 | Outpatient (CLI) | payer MEDICARE ==
[~2017-12-20] MED LIST changes: +AMOX875T2 PO; +IBUP1TAB7 PO
[2017-12-20 14:19] LABS: BILIRUBIN, URINE NEG (NEG); BLOOD, URINE NEG (NEG); GLUCOSE,URINE NEG (NEG); KETONE, URINE NEG (NEG); NITRITE,URINE NEG (NEG); PH, URINE 6.5 (5.0-8.5); SQUAMOUS EPITHELIAL CELL URINE 2 /hpf (0-5); URINE COLOR LIGHT-YELLOW (YELLW/STRAW); URINE LEUKOCYTE ESTERASE NEG (NEG)
[2017-12-20 14:23] LABS: BASOPHIL # 0.1 TH/MM3 (0-0.2); BASOPHIL % 1.3 % (0.0-2.0); EOSINOPHIL # 1.2 TH/MM3 (0-0.4); HEMOGLOBIN 12.3 GM/DL (11.6-15.3); LYMPH % 23.6 % (9.0-44.0); LYMPHOCYTE # 1.8 TH/MM3 (1.0-4.8); MEAN CELL VOLUME 88.4 FL (80.0-100.0); MEAN CORPUSCULAR HEMOGLOBIN 29.5 PG (27.0-34.0); MEAN CORPUSCULAR HGB CONC 33.3 % (32.0-36.0); MEAN PLATELET VOLUME 8.5 FL (7.0-11.0); MONO % 5.9 % (0.0-8.0); MONOCYTE # 0.4 TH/MM3 (0-0.9); NEUT % 53.2 % (16.0-70.0); PLATELET COUNT 311 TH/MM3 (150-450); RED BLOOD COUNT 4.18 MIL/MM3 (4.00-5.30); RED CELL DISTRIBUTION WIDTH 14.6 % (11.6-17.2); WHITE BLOOD COUNT 7.5 TH/MM3 (4.0-11.0)
[2017-12-20 14:50] LABS: BICARBONATE 25.1 MEQ/L (21.0-32.0); CALCIUM 9.2 MG/DL (8.5-10.1); CREATININE 0.87 MG/DL (0.50-1.00)
== END ==
LOC: PLAB 11:06
PROVIDERS: ATTEND Surgery
DX: R53.83 Other fatigue (principal)
CPT/HCPCS: 36415; 80048; 81001; 85025